=== PATIENT | male | born 1995 | race Caucasian/White ===

== ENCOUNTER → 2019-07-19 | Outpatient (CLI) | payer OTHER ==
[2019-07-19 16:34] LABS: EOS # 0.1 (0.04-0.40); EOS % 1.1 % (0.0-4.0); HEMATOCRIT 42.9 % (42.0-52.0); HEMOGLOBIN 14.7 g/dL (13.5-18.0); LYMPH# 1.3 (1.50-4.00); MEAN CELL VOLUME 86 fl (78-100); MEAN CORPUSCULAR HEMOGLOBIN 30 pg (27-31); MEAN CORPUSCULAR HGB CONC 34 g/dL (33-37); MEAN PLATELET VOLUME 11.4 fl (7.4-10.4); NEU # 8.4 (1.40-6.50); PLATELET COUNT 116 K/mm3 (130-400); RED BLOOD COUNT 4.98 M/mm3 (4.20-5.60); RED CELL DISTRIBUTION WIDTH 12.6 % (11.5-14.5); WHITE BLOOD COUNT 10.8 K/mm3 (4.8-10.8)
[2019-07-19 16:45] LABS: ALBUMIN 5.1 g/dL (3.5-5.0)
[2019-07-19 16:46] LABS: POTASSIUM 3.7 mmol/L (3.5-5.1)
[2019-07-19 16:47] LABS: CALCIUM 9.8 mg/dL (8.3-10.5)
[2019-07-19 16:48] LABS: TOTAL PROTEIN 8.6 g/dL (6.4-8.3)
[2019-07-19 16:50] LABS: TOTAL BILIRUBIN 0.6 mg/dL (0.2-1.2)
== END ==
LOC: LAB 16:24
PROVIDERS: Nurse Practitioner
DX: J02.9 Acute pharyngitis, unspecified (principal)